=== PATIENT | female | born 1970 | race Caucasian/White ===

== ENCOUNTER → 2017-03-14 | Outpatient (CLI) | payer OTHER ==
--- NOTE | 2017-03-14 16:47 | REP ---
MAXILLOFACIAL CT WITHOUT CONTRAST: HISTORY: Chronic sinusitis. The sinuses are clear. The osteomeatal units are patent. The middle and inferior nasal turbinates are partially paradoxical. There is kaley bullosa of the middle nasal turbinates. There is minimal deviation of the nasal septum to the right posteriorly and to the left anteriorly. A spur is present arising from the right side of the nasal septum. The cribriform plate and medial kitchen of the orbits and optic canals are intact. The carotid canals form a segment of the posterolateral kitchen of the sphenoid sinus. The right sphenoid sinus septum inserts into the right internal carotid canal wall. IMPRESSION: There is no acute or chronic sinusitis. Signed by Reynaldo Ross MD 03/14/2017 04:49 P
== END ==
LOC: M RAD 15:40
PROVIDERS: ATTEND Otolaryngology
DX: J32.0 Chronic maxillary sinusitis (principal)